=== PATIENT | male | born 1950 | race African-American/Black ===

== ENCOUNTER 2019-03-23 19:11 | Emergency (ER) | payer MEDICARE ==
[2019-03-23 20:39] VITALS: BP 149/87
--- NOTE | 2019-03-23 23:25 | Emergency Department Report ---
ED General Adult HPI - General Chief complaint: Earache Stated complaint: GENERAL PAIN Time Seen by Provider: 03/23/19 23:23 Source: patient Mode of arrival: Ambulatory Limitations: No Limitations - History of Present Illness Initial comments: 68-year-old male with a history of diabetes and hypertension presents with a complaint of left earache. Patient states he has been having a left earache for the past week. Patient states that he has been using alcohol to clean his ear. Patient states the pain in his ear is causing him difficulty sleeping. Patient denies any recent falls. - Related Data Previous Rx's Medication Instructions Recorded Last Taken Type Ciprofloxacin 0.2%(Nf) 3 drops AD BID 7 Days #1 droperette 03/23/19 Unknown Rx [Ciprofloxacin Otic 0.2%(Nf)] Allergies Allergy/AdvReac Type Severity Reaction Status Date / Time No Known Allergies Allergy Verified 03/23/19 19:25 ED Review of Systems ROS: Stated complaint: GENERAL PAIN Other details as noted in HPI Constitutional: denies: chills, fever Eyes: denies: eye pain, eye discharge, vision change ENT: ear pain Respiratory: denies: cough, shortness of breath, wheezing Cardiovascular: denies: chest pain, palpitations Endocrine: no symptoms reported Gastrointestinal: denies: abdominal pain, nausea, diarrhea Genitourinary: denies: urgency, dysuria Musculoskeletal: denies: back pain, joint swelling, arthralgia Skin: denies: rash, lesions Neurological: denies: headache, weakness, paresthesias Psychiatric: denies: anxiety, depression Hematological/Lymphatic: denies: easy bleeding, easy bruising ED Past Medical Hx - Past Medical History Previous Medical History?: Yes Hx Hypertension: Yes Hx Diabetes: Yes - Surgical History Past Surgical History?: Yes Additional Surgical History: Multiple - Social History Smoking Status: Never Smoker Substance Use Type: None - Medications Home Medications: Home Medications Medication Instructions Recorded Confirmed Last Taken Type Ciprofloxacin 0.2%(Nf) 3 drops AD BID 7 Days #1 droperette 03/23/19 Unknown Rx [Ciprofloxacin Otic 0.2%(Nf)] ED Physical Exam - General Limitations: No Limitations General appearance: alert, other (dishelved patient sleeping in no acute distress upon arrival) - Head Head exam: Present: atraumatic, normocephalic - Eye Eye exam: Present: normal appearance - ENT ENT exam: Present: mucous membranes moist, other (bleeding noted in left ear canal) - Neck Neck exam: Present: normal inspection - Respiratory Respiratory exam: Present: normal lung sounds bilaterally. Absent: respiratory distress - Cardiovascular Cardiovascular Exam: Present: regular rate, normal rhythm. Absent: systolic murmur, diastolic murmur, rubs, gallop - GI/Abdominal GI/Abdominal exam: Present: soft, normal bowel sounds - Rectal Rectal exam: Present: deferred - Extremities Exam Extremities exam: Present: normal inspection - Back Exam Back exam: Present: normal inspection - Neurological Exam Neurological exam: Present: alert, oriented X3 - Psychiatric Psychiatric exam: Present: normal affect, normal mood - Skin Skin exam: Present: warm, dry, intact, normal color. Absent: rash ED Course Vital Signs 03/23/19 19:22 Temperature 97.8 F Pulse Rate 83 Respiratory 18 Rate Blood Pressure 149/87 O2 Sat by Pulse 98 Oximetry ED Medical Decision Making - Medical Decision Making Patient to be discharged with augmentin therapy. Patient to be given follow up with ENT as an outpatient. - Differential Diagnosis Otitis externa; TM rupture Critical care attestation.: If time is entered above; I have spent that time in minutes in the direct care of this critically ill patient, excluding procedure time. ED Disposition Clinical Impression: Otitis media, serous, TM rupture Disposition: - TO HOME OR SELFCARE Is pt being admited?: No Does the pt Need Aspirin: No Condition: Stable Instructions: Ruptured Eardrum (ED) Prescriptions: Ciprofloxacin 0.2%(Nf) [Ciprofloxacin Otic 0.2%(Nf)] 3 drops AD BID 7 Days #1 [email or web address] Referrals: EV COTTO MD [Primary Care Provider] - 3-5 Days KATALINA CHACON MD [Referring] - 3-5 Days Time of Disposition: 23:33 Print Language: THAI
== END 2019-03-24 00:32 | disposition home or self-care (01) ==
LOC: ED 19:11
DX: H66.012 Acute suppurative otitis media with spontaneous rupture of ear drum, left ear (principal); I10 Essential (primary) hypertension; E11.9 Type 2 diabetes mellitus without complications; Z79.899 Other long term (current) drug therapy; Z98.890 Other specified postprocedural states

== ENCOUNTER 2021-04-15 08:51 | Emergency (ER) | payer MEDICARE ==
[2021-04-15 09:06] VITALS: BP 169/98
[2021-04-15] MEDS ORDERED: SODIUM CHLORIDE 0.9% 1000 ML 1,000 ML IV ONE (09:30)
--- NOTE | 2021-04-15 10:07 | XRay Report ---
CHEST 2 VIEWS INDICATION: cough. COMPARISON: none FINDINGS: Support devices: None. Heart: Within normal limits. Lungs/pleura: No acute air space or interstitial disease. No pneumothorax. Additional findings: Multiple bilateral chronic appearing rib fractures are identified. Multiple left rib fractures have been internally fixated with metal plate and screws. IMPRESSION: No acute cardiopulmonary process. Multiple bilateral chronic rib fractures. Signer Name: Jordan Reed Jr, MD Signed: 04/15/2021 10:02 AM Workstation Name: [id number]
--- NOTE | 2021-04-15 10:20 | Event Note ---
ED Screening Note Date of service: 04/15/21 Time: 10:19 ED Screening Note: Patient presents with complaints of generalized body aches and cough for 1 week States he has been out of his diabetic medications for 1 month He denies any chest pain, shortness of breath, hemoptysis, nausea/vomiting/di arrhea, or abdominal pain No fever/chills/sweats per patient or loss of taste or smell This initial assessment/diagnostic orders/clinical plan/treatment(s) is/are subject to change based on patients health status, clinical progression and re- assessment by fellow clinical providers in the ED. Further treatment and workup at subsequent clinical providers discretion. Patient/guardian urged not to elope from the ED as their condition may be serious if not clinically assessed and managed. Initial orders include: Labs Fluids Chest x-ray
[2021-04-15 12:13] LABS: Bilirubin,Urine NEG (Negative); Blood,Urine MOD (Negative); Color,Urine Yellow (Yellow); Urobilinogen,Urine < 2.0 mg/dL (<2.0)
[2021-04-15 12:21] LABS: Protein,Urine >500 mg/dL (Negative)
[2021-04-15 12:31] LABS: Bacteria,Urine Negative /HPF (Negative)
== END 2021-04-15 11:26 | disposition left against medical advice (07) ==
LOC: ED 08:51
DX: M79.18 Myalgia, other site (principal); R05.9 Cough, unspecified; Z53.21 Procedure and treatment not carried out due to patient leaving prior to being seen by health care provider
CPT/HCPCS: 71046; 81001; 82962; J7030; Q0162